=== PATIENT | female | born 1995 | race Hispanic/Latino ===

== ENCOUNTER 2019-10-20 23:43 | Day surgery (SDC) | payer OTHER ==
[2019-10-21] MEDS ORDERED: hydrALAZINE 20 MG/ML VIAL SLOW IVP PRN (00:44)
[2019-10-21] MEDS ORDERED: Acetaminophen 500 MG TAB PO PRN (00:45)
--- NOTE | 2019-10-21 00:54 | PDOC.FPROB ---
FMR OB H&P: Medications - Current Home Medications: Medication Instructions Recorded Confirmed Type Cephalexin [Keflex] 500 mg PO Q12H 5 Days #10 cap 10/21/19 Rx Pnv No.95/Ferrous Fum/Folic AC 1 each PO DAILY 10/21/19 10/21/19 History [ Vitamin Tablet] Allergies/Adverse Reactions: Allergies Allergy/AdvReac Type Severity Reaction Status Date / Time No Known Allergies Allergy Verified 10/21/19 01:11 FMR OB H&P: A/P Discussion: Date/Time: 10/21/19 0054 PCP: Mariely HPI: This is a 24 yo F at 38.6 wks who comes in for back pain, contractions and vaginal discharge. She states about 830 PM she stood up from using the restroom and some thick green discharge fell and hit the floor. She denies vaginal burning or irritation. She states that shortly after this she started to feel back pain which she describes as throbbing. She also describes vaginal pressure and aching in her thighs. She denies fevers, chills, sweats, dysuria, N/V/D. She affirms movement, denies cxns, ROM, bleeding. Denies WATERS, visual changes, SOB, or swelling. History: OB hx: c/s 2/2 failure to progress PMH: denies asthma, htn, dm PSH: c/s, wisdom teeth Meds: PNV All: NKDA Soc Hx: denies smoking, alcohol, drugs Fam Hx: denies downs, congenital defects REVIEW OF SYSTEMS: Gen: no fever, chills, or sweats Neuro: no numbness/tingling, no weakness, denies headache ENT: denies congestion Eyes: no visual changes Resp: denies cough, no production, no SOB, no wheeze Card: denies chest pain, no palpitations GI: denies nausea, vomiting, diarrhea : no dysuria, no hematuria Skin: no rash, no erythema Psych: denies hx anxiety/depression Vitals: T: 98.5 R: 18 BP: 126/84 P:67 at: 98% on RA PHYSICAL EXAMINATION: General: NAD, alert and oriented x3 HEENT: EOMI, normal sclera Neck: Supple. Full ROM. Heart/Cardiovascular System: RRR, Cap refill < 3 seconds, no rub, no murmur Lungs/Respiratory System: clear to auscultation bilaterally. No increased work of breathing. Room air. Abdomen/Gastro-Intestinal System: no abdominal tenderness, normal bowel sounds, Gravid Extremities: Warm extremities. No cyanosis or edema. Neuro: No gross deficits appreciated Psychiatry: Awake, Alert and cooperative with exam Skin: no lesions, no rashes Musculoskeletal: no pain to palpation spinal column, mild bilateral CVA tenderness reported, no pain to SI joint palpation A/P: This is a 24 yo F at 38.6 wks here for multiple complaints FHT: 120 baseline, mod variability, no decels, accels present [place]: cxns irregular # - /50/-3 same as in clinic 5 days ago, cxns resolved # Vaginal Discharge - Thick green d/c, check VP3, GC/CT # Back pain - Denies dysuria - UA positive for infection - 1gm Rocephin IM, keflex 500mg BID for 5 days, f/u with PCP, cx pending Discharged home return precautions discussed
[2019-10-21 01:15] VITALS: BMI 22.6
[2019-10-21 01:52] LABS: Bilirubin Negative (Negative); Blood, Urine 1+ (Negative); Clarity Turbid (Clear); Glucose, Urine (Dipstick) Normal (Negative); Leukocyte 500 Leu/uL (Negative); Nitrite 2+ (Negative); Protein, Urine (Dipstick) 600 mg/dL (Neg-Trace); Squamous Epithelial 0-3 HPF (0-3); WBC/HPF Greater than 50 HPF (0-3)
[2019-10-21 01:59] LABS: Bacteria/HPF 4+ HPF (None Seen)
[2019-10-21] MEDS ORDERED: FLU VACC QS2019-20(6MOS UP)/PF 60 MCG/0.5 ML SYRINGE IM ONE (02:00)
[2019-10-21 03:00] LABS: Urine Culture Reflex Yes Yes
[2019-10-21] MEDS ORDERED: Lidocaine 1% PF 5 ML VIAL ONE (03:07)
[2019-10-21] MEDS ORDERED: cefTRIAXone\\ROCEPHIN 1 GM VIAL IM SCH (03:15)
[2019-10-23 22:23] LABS: Chlamydia by PCR Inconclusive (NotDetected); GC by PCR Inconclusive (NotDetected)
== END 2019-10-21 03:35 | disposition home or self-care (01) ==
LOC: L&D/OP 23:43
PROVIDERS: ATTEND Obstetrics & Gynecology
DX: O99.89 Other specified diseases and conditions complicating pregnancy, childbirth and the puerperium (principal); N89.8 Other specified noninflammatory disorders of vagina; M54.9 Dorsalgia, unspecified; O47.1 False labor at or after 37 completed weeks of gestation; Z3A.38 38 weeks gestation of pregnancy
CPT/HCPCS: 81001; 87077; 87086; 87186; 87480; 87491; 87510; 87591; 87660; 99285; J0696; J2001

== ENCOUNTER 2019-10-27 22:04 | Inpatient (IN) | payer OTHER ==
[~2019-10-27 22:04] MED LIST: Bupivacaine/Epinephrine 0.25% 30 ML VIAL ONE
[2019-10-27 22:40] VITALS: BMI 22.8
[2019-10-27] MEDS ORDERED: hydrALAZINE 20 MG/ML VIAL SLOW IVP PRN (22:57)
[2019-10-27] MEDS ORDERED: Lidocaine 1% (PF) 30 ML VIAL SC PRN (22:57)
[2019-10-27] MEDS ORDERED: Promethazine HCl 25 MG/ML VIAL IM PRN (22:57)
[2019-10-27] MEDS ORDERED: NS / Oxytocin 40 units/1000ml 1,000 ML IV PRN (22:57)
[2019-10-27] MEDS ORDERED: Ondansetron PF 4 MG/2 ML Vial IVP PRN (22:57)
--- NOTE | 2019-10-27 22:59 | PDOC.FPROB ---
FMR OB H&P: HPI - History of Present Illness Chief Complaint: LOF Indentification: 24yo at 39.5wks History of Present Illness: 24yo at 39.5wks presents with LOF at 1900. Reports some contractions. Denies vaginal bleeding. Endorses movement. Primary Care Physician: Dr Schuster FMR OB H&P: Current - Care : 2 Para: 1001 Gestational age: 39.5wks - OB Labs Blood type: O RH: positive HIV: unknown RPR: unknown HepBsAg: unknown Gonorrhea: negative Chlamydia: negative 1 hour gtt: 56 GBS: negative Platelets: 285 FMR OB H&P: History - Past Medical History PMH: Denies - OB History OB History: Hx of C/S x1 for NRFHTs - Surgical History Sx History: C/S x1 - Social History Social History: Denies tobacco, alcohol and drug use - Family History Family History: Unremarkable FMR OB H&P: Medications - Current Home Medications: Medication Instructions Recorded Confirmed Type Pnv No.95/Ferrous Fum/Folic AC 1 each PO DAILY 10/21/19 10/27/19 History [ Vitamin Tablet] Nitrofurantoin Monohyd/M-Cryst 100 mg PO DAILY 10/27/19 10/27/19 History [Macrobid 100 mg Capsule] Allergies/Adverse Reactions: Allergies Allergy/AdvReac Type Severity Reaction Status Date / Time No Known Allergies Allergy Verified 10/27/19 22:30 FMR OB H&P: ROS - Review of Systems General: denies: fever/chills, fatigue Eyes: denies: vision changes, double vision, scotomas ENT: denies: nasal congestion, rhinorrhea Cardiovascular: denies: chest pain, edema Respiratory: denies: cough, shortness of breath Gastrointestinal: denies: abdominal pain, nausea, vomiting Genitourinary (Female): reports: contractions. denies: vaginal discharge, vaginal pain, vaginal bleeding Neurologic: denies: weakness Integumentary: denies: rash, lesions FMR OB H&P: Vital Signs - Maternal Vital signs: Vital Signs - First Documented Temp Pulse Resp BP 98.1 F 103 H 18 117/68 10/27/19 22:07 10/27/19 22:07 10/27/19 22:07 10/27/19 22:07 - Heart Tones Baseline: 140 Variability: moderate Acceleration: present Deceleration: absent Category: category 1 [place] contractions every: 4-5min FMR OB H&P: Physical Exam - Physical Exam General: NAD, awake, alert and oriented HEENT: normocephalic and atraumatic, MMM, conjunctiva clear, grossly normal hearing, oropharynx clear Neck: supple, trachea midline Heart: RRR, no murmurs/rubs/gallops, pulses present, no edema General: CTAB, no respiratory distress, no wheezing Abdomen: soft, gravid, non-tender Musculoskeletal: pulses present, no misalignment/asymmetry, no atrophy Neurological: no focal deficit Skin: good tugor Lymphatic: no unusual bruising or bleeding, no petechia Psychiatric: intact recent and remote memory, good judgement and insight, normal mood and affect - Pelvic Exam Vulva: normal hair distribution, appropriate belkis stage (multiple small serous filled pustules left labia and inner thigh, not consistent with HSV. No surrounding erythema. Nonpainful) SVE: 3 Membranes: SROM Presentation: Cephalic by US FMR OB H&P: A/P Disposition: 24yo at 39.5wks presents with LOF Term sIUP - Leakage of fluid evident on pad, US cephalic with little/no amniotic fluid - Hx of C/S x1, was scheduled for TOLAC 10/28 - Will obtain labs not included in records available - Desires epidural - SVE 3 - FHTs Cat 1 Currently brandon every 4-5min. Plan for serial cervical checks, discuss starting pitocin with pt if indicated Discussion: Date/Time: 10/27/19 9044 This H&P was discussed with Dr. Lacy who agrees with the above documentation and plan.
[2019-10-27] MEDS ORDERED: NS w/ Oxytocin 10 units 500 ML IV SCH (23:30)
[2019-10-27] MEDS: Lactated Ringer's 1,000 ML IV SCH (23:40)
[2019-10-27 23:54] LABS: Hemoglobin 10.3 g/dL (12.0-16.0); Mean Corpuscular Hemoglobin 27.9 pg (27.0-31.0); Mean Corpuscular Volume 79.9 fL (78.0-98.0); Mean Platelet Volume 7.5 fL (7.4-10.4); Platelet Count 332 thou/uL (130-400); RBC Distribution Width 12.8 % (11.5-14.5); Red Blood Cell (RBC) Count 3.68 mill/uL (4.20-5.40); White Blood Cell (WBC) Count 10.1 thou/uL (4.8-10.8)
[2019-10-28 00:38] LABS: HBSAg Index 0.24 S/CO (0-0.99); Hep B Surf Ag Non-Reactive S/CO (NonReactive); Syphilis Antibody Nonreactive (Nonreactive); Syphilis Antibody Index 0.05 S/CO (<1.00 Non-Reactive)
[2019-10-28 01:01] LABS: HIV (1/2) Antibody/Antigen Non-Reactive (NonReactive); HIV 1/2 INDEX 0.09 S/CO (<1.00)
[2019-10-28] MEDS ORDERED: Fentanyl 4 mcg/Bup 0.1% Cadd 100 ML ONE ×2 (01:42→10:28)
[2019-10-28] MEDS: Lactated Ringer's 1,000 ML IV SCH ×4 (02:18→22:47)
[2019-10-28] MEDS ORDERED: Lactated Ringer's 500 ML IV PRN (02:20)
[2019-10-28] MEDS ORDERED: Ondansetron PF 4 MG/2 ML Vial IVP PRN ×2 (02:20→15:28)
[2019-10-28] MEDS ORDERED: EPHEDRINE 25 MG/5 ML SYRINGE SLOW IVP PRN (02:20)
[2019-10-28] MEDS ORDERED: Promethazine HCl 25 MG/ML VIAL IM PRN ×2 (02:20→15:28)
[2019-10-28] MEDS ORDERED: Acetaminophen 325 MG TAB PO PRN (02:20)
[2019-10-28] MEDS ORDERED: Naloxone HCl 0.4 mg/ml Vial IVP PRN ×4 (02:20→15:28)
[2019-10-28] MEDS ORDERED: diphenhydrAMINE 50 MG/ML VIAL IVP PRN ×2 (02:20→15:28)
[2019-10-28] MEDS ORDERED: Communication Order-Pharmacy FS SCH ×2 (02:30→15:30)
[2019-10-28] MEDS ORDERED: Fentanyl 4 mcg/Bupivacaine 0.1% Cassette 100 ML EPIDURAL SCH (02:30)
--- NOTE | 2019-10-28 08:43 | PDOC.EVN ---
Event Note - Event Note Event Note: PITOCIN NOTE LDR2 CX still /0 I am at bedside with Jasmeet Reviewed pitocin plan. Pit for augmentation. FESTUS reviewed with her
[2019-10-28] MEDS: NS w/ Oxytocin 10 units 500 ML IV SCH ×2 (09:12→21:17)
[2019-10-28] MEDS ORDERED: Lidocaine 1% (PF) 30 ML VIAL ONE (09:27)
[2019-10-28] MEDS ORDERED: NS / Oxytocin 40 units/1000ml 1,000 ML ONE (09:27)
--- NOTE | 2019-10-28 13:47 | PDOC.LDPN ---
Labor & Delivery Progress Note - Subjective Subjective: painful contractions, other (desiring CS if no change) - Objective Abnormal vital signs: HR 116 General: breathing through contractions Dilation: 7 Effacement: 90% Station: 0 FHT: category 2, variable decelerations Other exam findings: Currently cat 2 tracing w/ occasional variables. IUPC placed: yes Resuscitative measures: maternal oxygen, maternal IV fluids, maternal position change, other (IV terbutaline & d/c pitocin) Plan: resuscitative measures, other -: Since patient has remained unchanged with adequate contractions for at least 6 hours. Decision made to proceed w/ C/S for mode of delivery. Will give 0.25mg IM terbutaline now and continue IVFs. Pitocin stopped ~ 1 hour ago. However, another patient in room 1 is in second stage with recurrent decels and will likely need to go to OR first (Dr. Spann in with room 1 patient now). Will therefore give terbutaline now to relax uterus and hopefully stop/decrease contractions and call anesthesia to evaluate MANUEL for better pain control. Discussed issue of 1 OR with patient and family & reiterated that other patient may need to go first since there is only 1 OR available. Will continue monitoring.
[2019-10-28] MEDS ORDERED: Terbutaline Sulfate 1 MG/ML VIAL ONE (13:49)
[2019-10-28] MEDS ORDERED: Azithromycin 500 MG VIAL ONE (14:25)
[2019-10-28] MEDS ORDERED: Sodium Chloride 0.9% 250 ML 250 ML ONE (14:25)
[2019-10-28] MEDS ORDERED: Lidocaine 2% 10 ML INJ ONE (14:35)
[2019-10-28] MEDS ORDERED: EPINEPHrine 1 MG/ML AMP ONE (14:35)
--- NOTE | 2019-10-28 14:42 | PRG ---
DATE OF SERVICE: 10/28/2019 TIME: Currently 1354 hours. This is a preop note. In brief, this patient is undergoing a trial of labor under and has not made any change for about 4 hours with adequate contractions. From the last hour, her Pitocin had been turned off as she was having recurrent variables. The patient is upset that she has not made cervical change and rightfully is asking for a repeat . I have examined the patient myself at bedside, along with Dr. Calderon, who was at bedside (but only I performed the exam) and I find her cervix to be unchanged at 7 cm dilation, 90% effacement, and 0 station. I have diagnosed a failure to progress/arrest of dilation. Her Pitocin had been turned off as previously dictated due to the variable decelerations. The issue at hand is that there are 2 OR cases in the main OR, where anesthesia is occupied. There is also a patient in another room, who is at second stage, who may need a as well (Dr. Spann). So, I am waiting anesthesia availability, and I am also awaiting word from the other patient's room to see if they need a as well. If 2 patients in Labor and Delivery need a at the same time, then the patient at second-stage (Dr. Spann's patient) will have to go first as she is in 2nd stage. I have told the patient in room 2 the situation and notify them that we are having to "triage" the OR availability and we are awaiting for Anesthesia. They are somewhat upset that Anesthesia is not available, but I tried my best to relay the situation to them. I will also give the patient terbutaline to try to relax the uterus and to give the patient some comfort, and I have also asked for SPEED RUNNER to come and assess the patient in room 2 for her labor pain. Currently, the heart tones in the patient's room has a baseline of around 150 with moderate variability. There are accelerations, but she is having some variable decelerations, it looks like with every other contraction. This is why, as we have to wait for the OR, I have elected to give her terbutaline to let the contractions christopher. Job ID: [id number]
[2019-10-28] MEDS ORDERED: MORPHINE 5 MG/10 ML PF VIAL ONE (14:44)
[2019-10-28] MEDS ORDERED: Fentanyl 100 MCG/2 ML VIAL ONE (14:44)
[2019-10-28] MEDS ORDERED: PHENYLEPHRINE-NS 100 MCG/ML 10 ML SYRINGE ONE (14:45)
[2019-10-28] MEDS ORDERED: Dexamethasone 4 mg/ml Vial ONE (14:45)
[2019-10-28] MEDS ORDERED: EPHEDRINE 25 MG/5 ML SYRINGE ONE (14:45)
[2019-10-28] MEDS ORDERED: Oxytocin 10 UNITS/ML VIAL ONE (14:45)
[2019-10-28] MEDS ORDERED: Ketorolac Tromethamine 30 MG/ML VIAL ONE (14:45)
[2019-10-28] MEDS ORDERED: Ondansetron PF 4 MG/2 ML Vial ONE (14:46)
[2019-10-28] MEDS ORDERED: Azithromycin 500 MG in Sodium Chloride 0.9% 250 ML 250 ML IVPB SCH (15:00)
[2019-10-28] MEDS ORDERED: CEFAZOLIN 2 GM in Premix Bag 1 BAG IVPB SCH (15:00)
[2019-10-28] MEDS ORDERED: Bicitra 30 ML UDCUP PO SCH (15:00)
[2019-10-28] MEDS ORDERED: Midazolam HCl 2 mg/2 ml Vial ONE (15:11)
[2019-10-28] MEDS ORDERED: Meperidine HCl/PF 25 MG/ML VIAL SLOW IVP PRN (15:28)
[2019-10-28] MEDS ORDERED: Promethazine HCl 25 MG SUPP PR PRN (15:28)
[2019-10-28] MEDS ORDERED: Naloxone HCl 0.4 mg/ml Vial IV PRN (15:28)
[2019-10-28] MEDS ORDERED: Ketorolac Tromethamine 30 MG/ML VIAL IVP PRN (15:28)
[2019-10-28] MEDS ORDERED: Ondansetron HCl/PF 4 MG/2 ML Vial IVP PRN (15:28)
[2019-10-28 15:33] LABS: Actual Bicarbonate (HCO3v) 18 mEq/L (22-28)
[2019-10-28 15:34] LABS: pH (Cord, venous) 7.21 (7.32-7.43)
[2019-10-28] MEDS ORDERED: PROPOFOL 20 ML ONE (15:42)
--- NOTE | 2019-10-28 16:15 | OP ---
DATE OF PROCEDURE: 10/28/2019 LOCATION: Labor and Delivery OR. TIME OF DELIVERY: Roughly about 3:30 p.m. approximately. PREOPERATIVE DIAGNOSES: 1. Failed trial of labor after . 2. Arrest of dilation at 7 cm. POSTOPERATIVE DIAGNOSES: 1. Failed trial of labor after . 2. Arrest of dilation at 7 cm. 3. Status post repeat low-transverse section. PROCEDURES PERFORMED: 1. Repeat low-transverse section via Pfannenstiel skin incision. 2. Mild lysis of adhesions (minimal). ASSISTANTS: 1. Jemima Alamo MD. 2. Jacob Millan DO. Both the cutter first and second assist are with the [facility] program. ANESTHESIA: Spinal anesthetic. ANTIBIOTICS: Ancef and Zithromax per protocol. FINDINGS: 1. Baby was in a cephalic presentation and vigorous at . 2. Prior to hysterotomy, there were fine filmy adhesions noted from the omentum to the anterior uterine serosa and these were lysed by blunt dissection. Hemostasis was assured. 3. Three-vessel cord and intact placenta. 4. Hemostasis [id number] hysterotomy repair. 5. NICU present for delivery per protocol. ESTIMATED BLOOD LOSS: Roughly 500 mL. QUANTITATIVE BLOOD LOSS: Pending, but seems to be less than my EBL. COMPLICATIONS: None. COUNTS: Correct. Laboratory studies sent. I asked for an umbilical arterial gas due to the mild variable declarations, but there was no gas in the umbilical segment and it was not able to be obtained from the placental surface. The sample which was sent was venous. DISPOSITION: To recovery room in good and stable condition. COUNTS: All counts were correct. DESCRIPTION OF PROCEDURE: After proper informed consent was explained to the patient, she was taken to labor and delivery OR and she was dosed of her labor epidural anesthetic. The epidural had been replaced by Dr. Hunt prior to our transport to the OR. The patient's abdomen was prepped and draped in the usual sterile fashion. A repeat skin incision was made in the area of the old scar using a scalpel. Bovie cautery on cut mode was used to dissect down to the subcutaneous tissue. The fascia was seen and was cleared off any overlying fat. Fascia was entered in a transverse fashion using Diego scissors. The rectus muscles were off the fascia both superiorly and inferiorly off the midline. Care was taken to avoid the underlying structures. Entry into the peritoneal cavity was done by blunt dissection and small filmy adhesions were noted from the omentum. These were lysed by blunt dissection without bleeding complication. An Rah O ring retractor was placed into the wound for visualization. A low-transverse hysterotomy was made without a bladder flap. Baby was in a cephalic presentation and was delivered without incident in an atraumatic fashion. Baby, a female, was vigorous at . About 30-second delayed cord clamping was allowed and the cord was then clamped, transected, and the baby was handed to the NICU team. The placenta was gently massaged out of the uterine cavity and delivered under a minute after delivery in a [place] fashion. A dry laparotomy sponge was used to curettage the uterine cavity, signifying a lack of any retained products of conception. Hysterotomy was closed with #1 Vicryl in the usual running locking fashion. Hemostasis was assured. A small peritoneal bleeder was noted at the left hysterotomy at the peritoneal reflection and this was rendered hemostatic with a [id number] suture of 3-0 plain gut. Rectus muscles were then reapproximated in the midline after confirming hemostasis. This was done with 3-0 plain gut in a running nonlocking fashion. The fascia was then closed with 0 PDS in a running nonlocking fashion and 2 stitches were used to approximate the fascia. Copious irrigation was done of the subcutaneous tissue. Subcutaneous tissue was cleaned off any small blood clot and debris and then the skin was closed with brina in the usual manner. There were no complications noted and the patient seemed to tolerate the procedure very well. Job ID: [id number]
[2019-10-28] MEDS ORDERED: Misoprostol 200 MCG TAB PR PRN (18:06)
[2019-10-28] MEDS ORDERED: Bisacodyl 10 MG SUPP PR PRN (18:06)
[2019-10-28] MEDS ORDERED: NS / Oxytocin 40 units/1000ml 1,000 ML IV SCH (18:06)
[2019-10-28] MEDS ORDERED: Lanolin Ointment 7 GM TUBE TOP PRN (18:06)
[2019-10-28] MEDS ORDERED: Methylergonovine 0.2 MG TAB PO PRN (18:06)
[2019-10-28] MEDS ORDERED: hydrALAZINE 20 MG/ML VIAL SLOW IVP PRN (18:06)
[2019-10-28] MEDS ORDERED: diphenhydrAMINE 25 MG CAP PO PRN (18:06)
[2019-10-28] MEDS ORDERED: Methylergonovine 0.2 MG/ML VIAL IM PRN (18:06)
[2019-10-28] MEDS ORDERED: Ferrous Sulfate 325 MG TAB PO SCH (18:30)
[2019-10-28] MEDS: Acetaminophen 650 MG Suppository PR SCH ×2 (21:17→23:50)
[2019-10-28] MEDS: Simethicone Chewable 80 MG TAB PO PRN (22:48)
[2019-10-28] MEDS: Docusate Calcium (SURFAK) 240 MG CAP PO SCH (22:48)
[2019-10-29] MEDS ORDERED: Acetaminophen/Codeine 30-300mg Tablet PO PRN (03:30)
[2019-10-29] MEDS ORDERED: Acetaminophen 325 MG TAB PO PRN (04:00)
[2019-10-29 06:39] LABS: Mean Corpuscular HGB CONC 34.4 g/dL (32.0-36.0); Mean Corpuscular Hemoglobin 27.8 pg (27.0-31.0); Mean Corpuscular Volume 80.9 fL (78.0-98.0); Mean Platelet Volume 7.7 fL (7.4-10.4); Platelet Count 264 thou/uL (130-400); RBC Distribution Width 12.7 % (11.5-14.5); Red Blood Cell (RBC) Count 2.86 mill/uL (4.20-5.40); White Blood Cell (WBC) Count 15.6 thou/uL (4.8-10.8)
[2019-10-29] MEDS: Ferrous Sulfate 325 MG TAB PO SCH ×2 (08:13→16:17)
[2019-10-29] MEDS: Simethicone Chewable 80 MG TAB PO PRN ×3 (08:13→20:40)
[2019-10-29] MEDS: Docusate Calcium (SURFAK) 240 MG CAP PO SCH ×2 (08:13→20:39)
[2019-10-29] MEDS: Prenatal Vitamin 1 TAB PO SCH (08:13)
[2019-10-29] MEDS: Acetaminophen/Codeine 30-300mg Tablet PO PRN ×3 (08:13→20:39)
--- NOTE | 2019-10-29 09:33 | PDOC.PP ---
Post Progress Note Post Day #: 1 PO intake tolerated: yes Flatus: yes Ambulation: yes Vital Signs (12 hours) Temp Pulse Resp BP 10/29/19 07:35 98.2 F 77 18 105/60 10/29/19 03:45 98.6 F 86 16 95/53 L 10/28/19 23:00 99.0 F 85 16 101/52 L Weight Weight 129 lb Result Diagrams: 10/29/19 06:13 Additional Labs: Post Labs Blood Type O POSITIVE 10/28/19 00:11 Hep Bs Antigen Non-Reactive S/CO (NonReactive) 10/27/19 23:45 - Assessment/Plan Post op day 1 from repeat c/s on 10/27 for failed TOLAC.FTP at 7 cm. Asymptomatic blood loss anemia. Doing well. Vityals stable. Routine care.
[2019-10-29] MEDS: Ibuprofen 800 MG TAB PO SCH ×2 (13:50→23:51)
[2019-10-29] MEDS: Lactated Ringer's 1,000 ML IV SCH (14:52)
[2019-10-30] MEDS: NS w/ Oxytocin 10 units 500 ML IV SCH (01:05)
[2019-10-30] MEDS: Lactated Ringer's 1,000 ML IV SCH (01:05)
[2019-10-30] MEDS: Simethicone Chewable 80 MG TAB PO PRN (02:38)
[2019-10-30] MEDS: Acetaminophen/Codeine 30-300mg Tablet PO PRN ×2 (02:38→07:11)
[2019-10-30] MEDS: Ibuprofen 800 MG TAB PO SCH (02:38)
[2019-10-30 08:30] VITALS: TEMP 98.3
--- NOTE | 2019-10-30 09:04 | PDOC.PP ---
Post Progress Note Post Day #: 2 PO intake tolerated: yes Flatus: yes Ambulation: yes Vital Signs (12 hours) Temp Pulse Resp BP Pulse Ox 10/30/19 08:30 98.3 F 83 20 97/56 L 97 10/30/19 05:20 98.6 F 77 16 103/52 L 10/30/19 02:40 98.6 F 77 16 103/52 L Weight Weight 129 lb Result Diagrams: 10/29/19 06:13 Additional Labs: Post Labs Blood Type O POSITIVE 10/28/19 00:11 Hep Bs Antigen Non-Reactive S/CO (NonReactive) 10/27/19 23:45 - Assessment/Plan Post op day 2 from repeat c/s with TOLAC. DOING well. D/[place]. Yissel out 11/01
[2019-10-30] MEDS: Prenatal Vitamin 1 TAB PO SCH (09:42)
[2019-10-30] MEDS: Docusate Calcium (SURFAK) 240 MG CAP PO SCH (09:42)
[2019-10-30] MEDS: Ferrous Sulfate 325 MG TAB PO SCH (09:42)
[2019-10-30 12:13] VITALS: BP 119/62
[2019-10-31 07:13] LABS: Measles (Rubeola) IgG AB Less than 13.5 AU/mL (Immune >16.4); Mumps IgG ABS 80.3 AU/mL (Immune >10.9)
== END 2019-10-30 12:23 | disposition home or self-care (01) | DRG 787 ==
LOC: L&D/OP 22:04 → L&D 22:57 → 3SW 10-28 18:36
PROVIDERS: ADMIT Obstetrics & Gynecology; ATTEND Obstetrics & Gynecology
PROC: 10D00Z1 Extraction of Products of Conception, Low, Open Approach (ICD-10-PCS; principal; 2019-10-28)
DX: O62.0 Primary inadequate contractions (principal); D62 Acute posthemorrhagic anemia; O34.219 Maternal care for unspecified type scar from previous cesarean delivery; Z3A.39 39 weeks gestation of pregnancy; Z37.0 Single live birth; O90.81 Anemia of the puerperium
CPT/HCPCS: 36415; 36416; 51702; 82805; 85027; 86735; 86762; 86765; 86780; 86850; 86900; 86901; 87340; 87389; 99285; J0171; J0456; J0690; J1100; J1885; J2001; J2250; J2274; J2405; J2590; J2704; J3010; J3105; J7050